=== PATIENT | male | born 1950 | race Caucasian/White ===

== ENCOUNTER 2019-02-22 13:31 | Observation (INO) | payer BC ==
[2019-02-22 13:49] VITALS: BMI 23.6
[2019-02-22] MEDS ORDERED: SODIUM CHLORIDE 1,000 ML IV STA (14:11)
--- NOTE | 2019-02-22 14:22 | PDOC ---
Attending Attestation - Resident Resident Name: Samantha,Ronna - HPI HPI: 02/22/19 18:55 Pt presents to the ED complaining of chest pain and lightheadness that began while seated at work today. Denies shortness of breath, nausea or vomiting. Had one similar episode three weeks ago where he syncopized but did not seek medical care. Currently chest pain free. - Physicial Exam PE: 02/22/19 19:09 Agree with resident exam. Patient is alert and oriented x 3 and in no acute distress. Lungs are clear. Heart regular rate and rhythm. - Medical Decision Making 02/22/19 19:10 Pt presents to the Ed complaining fo chest pain. Labs and EKG are within normal limits, but given age and the nature of his symptoms, will admit to medicine for continued monitoring and serial enzymes.
--- NOTE | 2019-02-22 14:29 | EKG ---
Test Reason : Blood Pressure : / mmHG Vent. Rate : 072 BPM Atrial Rate : 072 BPM P-R Int : 136 ms QRS Dur : 094 ms QT Int : 396 ms P-R-T Axes : 037 067 070 degrees QTc Int : 433 ms NORMAL SINUS RHYTHM WITH SINUS ARRHYTHMIA NORMAL ECG NO PREVIOUS ECGS AVAILABLE Confirmed by SHARON SCHNEIDER, SILVIA ([id number]) on 02/22/2019 2:28:27 PM Referred By: Confirmed By:SILVIA HERRERA MD
[2019-02-22 15:24] LABS: BASO % 0.4 % (0-2.0); EOS % 0.8 % (0-4.5); HEMATOCRIT 42.8 % (35.4-49); HEMOGLOBIN 14.5 GM/dL (11.7-16.9); LYMPH % 17.7 % (8-40); MCHC 33.9 g/dl (32.0-35.9); MEAN CELL VOLUME 97.4 fl (80-96); MEAN PLT VOLUME 7.9 fl (7.5-11.1); MONO % 6.8 % (3.8-10.2); NEUT % 74.3 % (42.8-82.8); PLATELET COUNT 215 K/MM3 (134-434); RDW 13.1 % (11.9-15.9); WHITE BLOOD COUNT 5.6 K/mm3 (4.0-10.0)
[2019-02-22 15:35] LABS: INR 1.07 (0.83-1.09); PROTHROMBIN TIME (PATIENT) 12.6 SEC (9.7-13.0)
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
[2019-02-22 15:53] LABS: ALBUMIN 4.5 g/dl (3.4-5.0); ALK PHOS 59 U/L (45-117); ANION GAP 6 MMOL/L (8-16); BILIRUBIN,TOTAL 1.1 mg/dL (0.2-1); BLOOD UREA NITROGEN 15.2 mg/dL (7-18); CALCIUM 9.5 mg/dL (8.5-10.1); CHLORIDE 104 mmol/L (98-107); CO2 29 mmol/L (21-32); CREATININE 1.1 mg/dL (0.55-1.3); GLUCOSE,RANDOM 92 mg/dL (74-106); MAGNESIUM 2.3 mg/dL (1.8-2.4); SGOT/AST 21 U/L (15-37); SGPT/ALT 23 U/L (13-61); SODIUM 138 mmol/L (136-145); TOT PROT 7.2 g/dl (6.4-8.2)
[2019-02-22] MEDS ORDERED: ASPIRIN COATED 81 MG TABLET.EC PO ONE (17:51)
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
[2019-02-22] MEDS ORDERED: ASPIRIN COATED 81 MG TABLET.EC ONE (19:21)
--- NOTE | 2019-02-22 23:39 | HP ---
CHIEF COMPLAINT: dizziness PCP:none-- has appt to [facility] w/ Dr. Kasandra Munoz 8th HISTORY OF PRESENT ILLNESS: 68 y.o. M PMH significant for L3-L5 herniation many years ago presenting for dizziness and chest pain. The patient states he has been dizzy for the past 4 weeks but it became more severe over the past few days. He says he has passed out multiple times, the first time being 3 years ago. Over the past 4 weeks he has had 3 episodes of passing out and lost consciousness 4 weeks ago. The LOC occurred while he was at a work meeting-- says he was out for 3-4seconds but was sitting at the time so did not hit his head. He did not lose continence, did not bite his tongue. He also endorses chest pain that started today--dull, 2 /10, radiating to L shoulder. No alleviating/ exacerbating factors. He has not seen a PCP in the past 15 years and takes no medications. ROS: +: 10lb weight loss over past month Denies ROCKWELL/ fevers/ chills/ N/V/D/ urinary symptoms/ myalgias/ parasthesias/ weakness. ER course was notable for: (1) ASA 162mg, 1L NS (2) EKG: sinus joe 58bpm (3) Recent Travel: denies PAST MEDICAL HISTORY: as per hpi PAST SURGICAL HISTORY: denies Social History: works in [employer] Smoking: denies Alcohol: denies Drugs: denies Allergies No Known Allergies Allergy (Verified 02/22/19 13:45) HOME MEDICATIONS: Home Medications Medication Instructions Recorded NK [No Known Home Medication] 02/22/19 PHYSICAL EXAMINATION Vital Signs - 24 hr 02/22/19 02/22/19 13:45 20:20 Temperature 98.6 F 98.5 F Pulse Rate 88 Pulse Rate [ 65 Apical] Respiratory 17 18 Rate Blood Pressure 138/94 Blood Pressure 127/85 [Right Arm] O2 Sat by Pulse 99 99 Oximetry (%) GENERAL: Thin male. AOx3 NAD HEENT: NCAT. PERRLA. No scleral icterus. LUNGS: CTABL. No incr work of breathing. No crackles/ wheezing HEART: HR 65. + systolic murmur. ABDOMEN: Soft, nontender, not distended, normoactive bowel sounds, no guarding MUSCULOSKELETAL: Good ROM all extremities EXTR: 2+ pulses palpated b/l No peripheral edema. NEUROLOGICAL: 2+ DTRs. Normal speech. applications analyst WNL. PSYCHIATRIC: Cooperative. Good eye contact. Appropriate mood and affect. SKIN: No rashes or lesions noted Laboratory Results - last 24 hr 02/22/19 02/22/19 02/22/19 14:50 14:50 14:50 WBC 5.6 RBC 4.40 Hgb 14.5 Hct 42.8 MCV 97.4 H MCH 33.0 MCHC 33.9 RDW 13.1 Plt Count 215 MPV 7.9 Absolute Neuts (auto) 4.2 Neutrophils % 74.3 Lymphocytes % 17.7 Monocytes % 6.8 Eosinophils % 0.8 Basophils % 0.4 Nucleated RBC % 0 PT with INR 12.60 INR 1.07 Sodium 138 Potassium 4.0 Chloride 104 Carbon Dioxide 29 Anion Gap 6 L BUN 15.2 Creatinine 1.1 Est GFR (CKD-EPI)AfAm 79.52 Est GFR (CKD-EPI)NonAf 68.61 Random Glucose 92 Calcium 9.5 Magnesium 2.3 Total Bilirubin 1.1 H AST 21 ALT 23 Alkaline Phosphatase 59 Creatine Kinase 112 Troponin I < 0.02 Total Protein 7.2 Albumin 4.5 ASSESSMENT/PLAN: 68 y.o. M PMH significant for L3-L5 herniation many years ago presenting for dizziness and chest pain. #Syncopal episode -CT head w/o contrast negative-- f/u brain MRI/MRA -Carotid U/S neg for stenosis, shows b/l atherosclerotic carotid a. plaques -f/u echo -EKG shows sinus joe; trop neg x1; f/u repeat EKG & trop -F/u U-tox -Neg chest xray -Orthostatics negative: supine 138/93 sitting 133/93 standing 129/97 -Frequent neuro checks -Neuro consulted (Dr. Hwang) -Fall precautions #Chest pain r/o ACS -EKG shows sinus joe, trop neg x1 -F/u repeat EKG, trop -f/u echo -Monitor on tele #FEN -no standing fluids -monitor lytes -NPO #DVT PPX -LVX 40mg SQ daily #Dispo Tele Visit type - Emergency Visit Emergency Visit: Yes ED Registration Date: 02/22/19 Care time: The patient presented to the Emergency Department on the above date and was hospitalized for further evaluation of their emergent condition. - New Patient This patient is new to me today: Yes Date on this admission: 02/23/19 - Critical Care Critical Care patient: No ATTENDING PHYSICIAN STATEMENT I saw and evaluated the patient. I reviewed the resident's note and discussed the case with the resident. I agree with the resident's findings and plan as documented. SUBJECTIVE: OBJECTIVE: ASSESSMENT AND PLAN:
[2019-02-23] MEDS ORDERED: SODIUM CHLORIDE 1,000 ML IV SCH (07:00)
[2019-02-23 07:02] LABS: BASO % 0.4 % (0-2.0); EOS % 0.6 % (0-4.5); HEMATOCRIT 41.4 % (35.4-49); HEMOGLOBIN 14.2 GM/dL (11.7-16.9); LYMPH % 17.8 % (8-40); MCH 33.7 pg (25.7-33.7); MCHC 34.4 g/dl (32.0-35.9); MONO % 7.1 % (3.8-10.2); NEUT % 74.1 % (42.8-82.8); PLATELET COUNT 206 K/MM3 (134-434); RBC 4.22 M/mm3 (4.00-5.60); RDW 12.8 % (11.9-15.9); WHITE BLOOD COUNT 6.3 K/mm3 (4.0-10.0)
[2019-02-23 07:16] LABS: BILIRUBIN,TOTAL 0.7 mg/dL (0.2-1); BLOOD UREA NITROGEN 11.9 mg/dL (7-18); CALCIUM 8.9 mg/dL (8.5-10.1); CREATININE 0.9 mg/dL (0.55-1.3); MAGNESIUM 2.1 mg/dL (1.8-2.4); PHOSPHOROUS 3.1 mg/dL (2.5-4.9); TOT PROT 6.5 g/dl (6.4-8.2)
[2019-02-23 07:45] VITALS: BP 137/89; PULSE 72; TEMP 98.1
--- NOTE | 2019-02-23 09:19 | PN ---
Physical Exam: SUBJECTIVE: Patient seen and examined OBJECTIVE: Vital Signs Period Temp Pulse Resp BP Sys/Chacko Pulse Ox Last 24 Hr 98.1 F-98.6 F 65-90 17-18 124-138/85-94 97-99 GENERAL: The patient is awake, alert, and fully oriented, in no acute distress. HEAD: Normal with no signs of trauma. EYES: PERRL, extraocular movements intact, sclera anicteric, conjunctiva clear. No ptosis. ENT: Ears normal, nares patent, oropharynx clear without exudates, moist mucous membranes. NECK: Trachea midline, full range of motion, supple. LUNGS: Breath sounds equal, clear to auscultation bilaterally, no wheezes, no crackles, no accessory muscle use. HEART: Regular rate and rhythm, S1, S2 without murmur, rub or gallop. ABDOMEN: Soft, nontender, nondistended, normoactive bowel sounds, no guarding, no rebound, no hepatosplenomegaly, no masses. EXTREMITIES: 2+ pulses, warm, well-perfused, no edema. NEUROLOGICAL: Cranial nerves II through XII grossly intact. Normal speech, gait not observed. PSYCH: Normal mood, normal affect. SKIN: Warm, dry, normal turgor, no rashes or lesions noted Laboratory Results - last 24 hr 02/22/19 02/22/19 02/22/19 14:50 14:50 14:50 WBC 5.6 RBC 4.40 Hgb 14.5 Hct 42.8 MCV 97.4 H MCH 33.0 MCHC 33.9 RDW 13.1 Plt Count 215 MPV 7.9 Absolute Neuts (auto) 4.2 Neutrophils % 74.3 Lymphocytes % 17.7 Monocytes % 6.8 Eosinophils % 0.8 Basophils % 0.4 Nucleated RBC % 0 PT with INR 12.60 INR 1.07 Sodium 138 Potassium 4.0 Chloride 104 Carbon Dioxide 29 Anion Gap 6 L BUN 15.2 Creatinine 1.1 Est GFR (CKD-EPI)AfAm 79.52 Est GFR (CKD-EPI)NonAf 68.61 Random Glucose 92 Calcium 9.5 Phosphorus Magnesium 2.3 Total Bilirubin 1.1 H AST 21 ALT 23 Alkaline Phosphatase 59 Creatine Kinase 112 Troponin I < 0.02 Total Protein 7.2 Albumin 4.5 02/22/19 02/23/19 02/23/19 22:54 05:30 05:30 WBC 6.3 RBC 4.22 Hgb 14.2 Hct 41.4 MCV 98.0 H MCH 33.7 MCHC 34.4 RDW 12.8 Plt Count 206 MPV 8.0 Absolute Neuts (auto) 4.6 Neutrophils % 74.1 Lymphocytes % 17.8 Monocytes % 7.1 Eosinophils % 0.6 Basophils % 0.4 Nucleated RBC % 0 PT with INR INR Sodium 139 Potassium 4.0 Chloride 107 Carbon Dioxide 24 Anion Gap 8 BUN 11.9 Creatinine 0.9 Est GFR (CKD-EPI)AfAm 101.36 Est GFR (CKD-EPI)NonAf 87.45 Random Glucose 92 Calcium 8.9 Phosphorus 3.1 Magnesium 2.1 Total Bilirubin 0.7 AST 19 ALT 22 Alkaline Phosphatase 56 Creatine Kinase Troponin I < 0.02 Total Protein 6.5 Albumin 4.0 02/23/19 05:30 WBC RBC Hgb Hct MCV MCH MCHC RDW Plt Count MPV Absolute Neuts (auto) Neutrophils % Lymphocytes % Monocytes % Eosinophils % Basophils % Nucleated RBC % PT with INR INR Sodium Potassium Chloride Carbon Dioxide Anion Gap BUN Creatinine Est GFR (CKD-EPI)AfAm Est GFR (CKD-EPI)NonAf Random Glucose Calcium Phosphorus Magnesium Total Bilirubin AST ALT Alkaline Phosphatase Creatine Kinase Troponin I < 0.02 Total Protein Albumin Active Medications Generic Name Dose Route Start Last Admin Trade Name Freq PRN Reason Stop Dose Admin Enoxaparin Sodium 40 mg 02/23/19 10:00 Lovenox - SQ DAILY CYNTHIA ASSESSMENT/PLAN: ATTENDING PHYSICIAN STATEMENT I saw and evaluated the patient. I reviewed the resident's note and discussed the case with the resident. I agree with the resident's findings and plan as documented. SUBJECTIVE: OBJECTIVE: ASSESSMENT AND PLAN:
[2019-02-23] MEDS ORDERED: ENOXAPARIN NA (PORCINE) 40 MG/0.4 ML DISP.SYRIN SQ SCH (10:00)
--- NOTE | 2019-02-23 10:22 | CON.NEURO ---
Consult - Alcohol/Substance Use Hx Alcohol Use: No - Smoking History Smoking history: Never smoked Home Medications - Allergies Allergies/Adverse Reactions: Allergies Allergy/AdvReac Type Severity Reaction Status Date / Time No Known Allergies Allergy Verified 02/22/19 13:45 - Home Medications Home Medications: Ambulatory Orders NK [No Known Home Medication] 02/22/19 Physical Exam-Neuro Vital Signs: Vital Signs Temperature 98.1 F 02/23/19 07:44 Pulse Rate 72 02/23/19 07:44 Respiratory Rate 18 02/23/19 07:44 Blood Pressure 137/89 02/23/19 07:44 O2 Sat by Pulse Oximetry (%) 97 02/23/19 07:44 Labs: CBC, BMP 02/23/19 05:30 02/23/19 05:30 INR, PTT INR 1.07 (0.83-1.09) 02/22/19 14:50 Assessment/Plan cc Episodic dizziness and Passing out HPI 68 year old male no significant medical history. He has been experiencing dizziness, which he describes a very brief dysbalance and goes away in few seconds. He denies any other focal neurological symptoms. He denies any vertigo, hearing difficulty, ringing in ear difficulty. Patient has ct head and normal carotid ultrasound . PAST MEDICAL HISTORY: as per hpi PAST SURGICAL HISTORY: denies Social History: works in [employer] Smoking: denies Alcohol: denies Drugs: denies Allergies No Known Allergies Allergy (Verified 02/22/19 13:45) HOME MEDICATIONS: Home Medications Medication Instructions Recorded NK [No Known Home Medication] 02/22/19 ROS,FH,SH unremarkable NEUROLOGICAL EXAMINATION Alert oriented x 3, neck is supple, vss afebrile eomi, pupils reactive no face asymmetry moving all ext sensation is normal gait and coordination is normal ct head unremarkable , carotid ultrasound is normal Assessment/Plan 68 year old male no vascular risk factors, having dizziness, and came with hospital for chest pain and dizziness. He has one episode of syncope. There is no other focal neurological symptoms or signs. Dizziness is Unlikley to be BPPV, Stroke/tia . Dizziness is likley to be vascular in origin and passing out episode is syncope Plan: no further recommendation from neuro point of view - no need for mri of brain or eeg at this time Thanking you so much Boy Hwang MD
--- NOTE | 2019-02-23 13:31 | ECHO ---
Name: PORSHA JACOME Exam:Adult Echocardiogram Study Date: 02/23/2019 10:43 AM Age: 68 yrs Reason For Study: SYNCOPE EPISODE Height: 69 in Weight: 160 lb BSA: 1.9 m2 MMode/2D Measurements & Calculations IVSd: 0.94 cm Ao root diam: 2.8 cm LVIDd: 3.6 cm LA dimension: 2.6 cm LVIDs: 2.5 cm LVPWd: 0.73 cm LVPWs: 1.3 cm EDV(Teich): 53.8 ml ESV(Teich): 23.0 ml LVOT diam: 2.0 cm Doppler Measurements & Calculations MV E max bharathi: 74.0 cm/sec Ao V2 max: 145.2 cm/sec MV A max bharathi: 93.3 cm/sec Ao max P.4 mmHg MV E/A: 0.79 Ao V2 mean: 95.8 cm/sec MV dec time: 0.17 sec Ao mean P.5 mmHg Ao V2 VTI: 27.7 cm VINCENT(I,D): 2.9 cm2 VINCENT(V,D): 2.7 cm2 LV V1 max P.5 mmHg SV(LVOT): 80.1 ml LV V1 mean P.1 mmHg LV V1 max: 127.8 cm/sec LV V1 mean: 77.6 cm/sec LV V1 VTI: 26.5 cm PA V2 max: 104.2 cm/sec Med Peak E' Bharathi: 7.4 cm/sec PA max P.3 mmHg Med E/e': 10.0 Lat Peak E' Bharathi: 13.8 cm/sec Lat E/e': 5.4 Left Ventricle Left ventricular systolic function is normal. Ejection Fraction = 55-60%. The transmitral spectral Do ppler flow pattern is suggestive of impaired LV relaxation. Right Ventricle The right ventricle is grossly normal size. The right ventricular systolic function is grossly normal . Atria Normal left and right atrial size and function. Mitral Valve The mitral valve is normal in structure and function. There is no mitral valve stenosis. There is no mitral regurgitation noted. Tricuspid Valve The tricuspid valve is normal in structure and function. There is mild tricuspid regurgitation. Right ventricular systolic pressure is normal. Aortic Valve There is moderate to severe aortic sclerosis.;. No hemodynamically significant valvular aortic stenos is. No aortic regurgitation is present. Pulmonic Valve The pulmonic valve is not well seen, but is grossly normal. There is no pulmonic valvular stenosis. T here is no pulmonic valvular regurgitation. Great Vessels The aortic root is normal size. Pericardium/Pleura There is no pericardial effusion. Interpretation Summary Left ventricular systolic function is normal. Ejection Fraction = 55-60%. The transmitral spectral Doppler flow pattern is suggestive of impaired LV relaxation. The right ventricle is grossly normal size. The right ventricular systolic function is grossly normal. There is mild tricuspid regurgitation. Right ventricular systolic pressure is normal. There is moderate to severe aortic sclerosis.; There is no pericardial effusion. MD Gomez *Phani 02/23/2019 01:31 PM
--- NOTE | 2019-02-23 14:21 | DS ---
Physical Exam: SUBJECTIVE: Pt was admitted due to intermittent syncopal events sometimes happening while seated. Pt reports some symptoms of lightheadedness preceeding the syncopal episode, however will have 1-5 seconds of unconsciousness and then will have normal mentation after. Pt remains pretty active with walking hills and playing tennis. He denies any symptoms at this time and has not had any other events while here. No telemetry events noted. No medications, vitamins, or supplements. Spoke with Cardiology who recommended outpatient loop recorder vs. holter monitoring. OBJECTIVE: Vital Signs Period Temp Pulse Resp BP Sys/Chacko Pulse Ox Last 24 Hr 98.1 F-98.5 F 65-90 17-18 124-137/85-89 97-99 PHYSICAL EXAM GENERAL: The patient is awake, alert, and fully oriented, in no acute distress. HEENT: NC/AT, EOMI without nystagmus, TABATHA, sclera anicteric, MMM NECK: No JVD, soft, no carotid bruit, no effect of carotid stimulation LUNGS: CTA bilaterally, no wheezes, no crackles, no accessory muscle use. HEART: RRR, S1, S2 without murmur ABDOMEN: Soft, NT/ND, normoactive bowel sounds, no guarding, no hepatomegaly EXTREMITIES: 2+ DP pulses, warm, well-perfused, no edema. 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 Strength 5/5 throughout, sensation intact throughout. Reflexes 2/4. Babinski downgoing b/l. Normal speech , gait stable and normal PSYCH: Normal mood, normal affect. SKIN: Warm, dry, no rashes or lesions noted. LABS Laboratory Results - last 24 hr 02/22/19 02/22/19 02/22/19 14:50 14:50 14:50 WBC 5.6 RBC 4.40 Hgb 14.5 Hct 42.8 MCV 97.4 H MCH 33.0 MCHC 33.9 RDW 13.1 Plt Count 215 MPV 7.9 Absolute Neuts (auto) 4.2 Neutrophils % 74.3 Lymphocytes % 17.7 Monocytes % 6.8 Eosinophils % 0.8 Basophils % 0.4 Nucleated RBC % 0 PT with INR 12.60 INR 1.07 Sodium 138 Potassium 4.0 Chloride 104 Carbon Dioxide 29 Anion Gap 6 L BUN 15.2 Creatinine 1.1 Est GFR (CKD-EPI)AfAm 79.52 Est GFR (CKD-EPI)NonAf 68.61 Random Glucose 92 Calcium 9.5 Phosphorus Magnesium 2.3 Total Bilirubin 1.1 H AST 21 ALT 23 Alkaline Phosphatase 59 Creatine Kinase 112 Troponin I < 0.02 Total Protein 7.2 Albumin 4.5 02/22/19 02/23/19 02/23/19 22:54 05:30 05:30 WBC 6.3 RBC 4.22 Hgb 14.2 Hct 41.4 MCV 98.0 H MCH 33.7 MCHC 34.4 RDW 12.8 Plt Count 206 MPV 8.0 Absolute Neuts (auto) 4.6 Neutrophils % 74.1 Lymphocytes % 17.8 Monocytes % 7.1 Eosinophils % 0.6 Basophils % 0.4 Nucleated RBC % 0 PT with INR INR Sodium 139 Potassium 4.0 Chloride 107 Carbon Dioxide 24 Anion Gap 8 BUN 11.9 Creatinine 0.9 Est GFR (CKD-EPI)AfAm 101.36 Est GFR (CKD-EPI)NonAf 87.45 Random Glucose 92 Calcium 8.9 Phosphorus 3.1 Magnesium 2.1 Total Bilirubin 0.7 AST 19 ALT 22 Alkaline Phosphatase 56 Creatine Kinase Troponin I < 0.02 Total Protein 6.5 Albumin 4.0 02/23/19 05:30 WBC RBC Hgb Hct MCV MCH MCHC RDW Plt Count MPV Absolute Neuts (auto) Neutrophils % Lymphocytes % Monocytes % Eosinophils % Basophils % Nucleated RBC % PT with INR INR Sodium Potassium Chloride Carbon Dioxide Anion Gap BUN Creatinine Est GFR (CKD-EPI)AfAm Est GFR (CKD-EPI)NonAf Random Glucose Calcium Phosphorus Magnesium Total Bilirubin AST ALT Alkaline Phosphatase Creatine Kinase Troponin I < 0.02 Total Protein Albumin Active Medications Enoxaparin Sodium (Lovenox -) 40 mg SQ DAILY CYNTHIA Last Admin: 02/23/19 11:51 Dose: Not Given Imaging: Echocardiogram: Interpretation Summary Left ventricular systolic function is normal. Ejection Fraction = 55-60%. The transmitral spectral Doppler flow pattern is suggestive of impaired LV relaxation. The right ventricle is grossly normal size. The right ventricular systolic function is grossly normal. There is mild tricuspid regurgitation. Right ventricular systolic pressure is normal. There is moderate to severe aortic sclerosis.; There is no pericardial effusion. Carotid U/S: Impression: The interrogated portions of the vertebral arteries appear patent with physiologic flow direction. There is no Doppler evidence of a high-grade carotid artery stenosis. Mild to moderate calcified atherosclerotic carotid artery plaque is seen bilaterally. Head CT w/o contrast: Impression: No CT evidence of acute intracranial pathology HOSPITAL COURSE: Date of Admission:02/22/19 Date of Discharge: 02/23/19 Pt was admitted on 02/22/19 due to syncopal event and worked up for neurogenic and cardiogenic causes. Pt's workup including cardiac monitoring, carotid dopplers, echocardiogram, ECG, and head CT without contrast were all negative at this point. Pt remained asymptomatic for 24hours and was seen by neurology who did not believe this is neurogenic in nature. It was discussed with cardiology who reported outpatient management with holter monitor vs. loop recorder, tilt-table testing, and outpatient stress testing. Pt was advised to avoid driving due to his syncopal events and was relayed information about his test. He is being discharged in stable condition with normal tests, and with instructions to see Dr. Slaughter (Mar 23) and Dr. Miramontes/Diana/[place]. Minutes to complete discharge: 35 Discharge Summary Problems reviewed: Yes Reason For Visit: SYNCOPE CHEST PAIN Condition: Stable - Instructions Diet, Activity, Other Instructions: You were seen for your fainting spells. We imaged your heart, carotid arteries, and brain which were all normal. We had you on a radiation monitor which did not show any irregular heart rhythms. You should avoid driving as if you faint while driving you can injure yourself and others. MEDICATIONS: Please stay hydrated and well-nourished as a lot of fainting spells can be fixed with this alone. Follow-up: Please follow-up with Dr. Slaughter to establish care on Mar.24. Please follow-up with Dr. Ortiz in 3-5 days for a possible Holter monitor ( heart rhythm monitor) to look at your heart rhythm for an extended period of time Referrals: Noel Slaughter MD [Primary Care Provider] - (Mar 24 appointment) Jay Ortiz MD [Staff Physician] - 1 Week (Holter Monitor vs. Loop recorder ) Disposition: HOME - Home Medications Comprehensive Discharge Medication List: Ambulatory Orders NK [No Known Home Medication] 02/22/19 This patient is new to me today: Yes Date on this admission: 02/23/19 Emergency Visit: Yes ED Registration Date: 02/22/19 Care time: The patient presented to the Emergency Department on the above date and was hospitalized for further evaluation of their emergent condition. Critical Care patient: No - Discharge Referral Referred to [facility] Yes Physician Referral: Noel Slaughter MD (Int Med) ATTENDING PHYSICIAN STATEMENT I saw and evaluated the patient. I reviewed the resident's note and discussed the case with the resident. I agree with the resident's findings and plan as documented. SUBJECTIVE: OBJECTIVE: ASSESSMENT AND PLAN:
--- NOTE | 2019-02-23 14:28 | EKG ---
Test Reason : Blood Pressure : / mmHG Vent. Rate : 058 BPM Atrial Rate : 058 BPM P-R Int : 136 ms QRS Dur : 094 ms QT Int : 420 ms P-R-T Axes : 025 030 063 degrees QTc Int : 412 ms SINUS BRADYCARDIA OTHERWISE NORMAL ECG WHEN COMPARED WITH ECG OF 22-FEB-2019 13:33, NO SIGNIFICANT CHANGE WAS FOUND Confirmed by ELIANA PONCE MD ([id number]) on 02/23/2019 2:27:52 PM Referred By: Confirmed By:ELIANA PONCE MD
--- NOTE | 2019-02-23 15:34 | CON.CARD ---
Consult Consult Specialty:: Cardiology Reason for Consultation:: Syncope - History of Present Illness Chief Complaint: Syncope History of Present Illness: This is a 68 year old male with no significant PMH other than back problems ( herniated disks). He takes no meds and hasn't seen a doctor in able 15 years. He plays tennis regularly. About 2 weeks ago he was sitting at a meeting and felt dizzy and had several seconds of LOC associated with diaphoresis. He declined to go to a hospital at that time. He was asymptomatic until yesterday ( 02/22/19) when he again felt extremely dizzy while sitting and had another near LOC event. This event lasted several minutes and he does admit to vague chest discomfort following the event. Presently he is asymptomatic. Trops negative x3 Echocardiogram 02/23/19: NL LV function EF 55-60% Impaired diastolic relaxation Normal RV size and function Mild TR EKG 02/22/19 NSR at 72 BPM with normal intervals, normal axis, and NSSTTW changes. - Alcohol/Substance Use Hx Alcohol Use: No - Smoking History Smoking history: Never smoked Home Medications - Allergies Allergies/Adverse Reactions: Allergies Allergy/AdvReac Type Severity Reaction Status Date / Time No Known Allergies Allergy Verified 02/22/19 13:45 - Home Medications Home Medications: Ambulatory Orders NK [No Known Home Medication] 02/22/19 Vital Signs: Vital Signs Temperature 98.1 F 02/23/19 07:44 Pulse Rate 72 02/23/19 07:44 Respiratory Rate 18 02/23/19 07:44 Blood Pressure 137/89 02/23/19 07:44 O2 Sat by Pulse Oximetry (%) 97 02/23/19 07:44 Constitutional: Yes: Well Nourished Eyes: Yes: WNL HENT: Yes: WNL Neck: Yes: WNL Respiratory: Yes: CTA Bilaterally Gastrointestinal: Yes: Soft Cardiovascular: Yes: Regular Rate and Rhythm Heart Sounds: Yes: S1, S2 Extremities: Yes: WNL Edema: No Neurological: Yes: Alert, Oriented - Other Data Labs, Other Data: CBC, BMP 02/23/19 05:30 02/23/19 05:30 INR, PTT INR 1.07 (0.83-1.09) 02/22/19 14:50 Troponin, BNP 02/22/19 02/22/19 02/23/19 14:50 22:54 05:30 Troponin I < 0.02 < 0.02 < 0.02 Troponin, BNP 02/22/19 02/22/19 02/23/19 14:50 22:54 05:30 Troponin I < 0.02 < 0.02 < 0.02 Assessment/Plan 68 year old male with no significant PMH other than back problems (herniated disks). He takes no meds and hasn't seen a doctor in able 15 years. He plays tennis regularly. About 2 weeks ago he was sitting at a meeting and felt dizzy and had several seconds of LOC associated with diaphoresis. He declined to go to a hospital at that time. He was asymptomatic until yesterday (02/22/19) when he again felt extremely dizzy while sitting and had another near LOC event. This event lasted several minutes and he does admit to vague chest discomfort following the event. Presently he is asymptomatic. Trops negative x3 Echocardiogram 02/23/19: NL LV function EF 55-60% Impaired diastolic relaxation Normal RV size and function Mild TR EKG 02/22/19 NSR at 72 BPM with normal intervals, normal axis, and NSSTTW changes. Syncope Given the fact that these events happen while sitting, this is suspicious for a joe arrhythmia and less likely for vasovagal syncope. Would consider Tilt Table Testing and prolonged event monitoring. Also should have an exercise nuclear stress test.
== END 2019-02-23 18:28 | disposition left against medical advice (07) ==
LOC: JER 13:31 → JERBED 17:51 → INTOOBSV 22:02 → OBSVTOIN 22:02
PROVIDERS: ADMIT Internal Medicine; ATTEND Internal Medicine
PROC: 3E0337Z Introduction of Electrolytic and Water Balance Substance into Peripheral Vein, Percutaneous Approach (ICD-10-PCS; principal; 2019-02-22)
DX: R55 Syncope and collapse (principal); R07.89 Other chest pain; M51.26 Other intervertebral disc displacement, lumbar region; Z29.8 Encounter for other specified prophylactic measures
CPT/HCPCS: 36415; 70450-TC; 71046-TC-FY; 80053; 82550; 83735; 84100; 84484; 85025; 85610; 93005; 93010; 93306-TC; 93880-TC; 99285-25; G0378; J7030